=== PATIENT | male | born 1970 | race American Indian/Alaskan Native ===

== ENCOUNTER 2017-03-31 01:55 | Emergency (ER) | payer MEDICAID, OTHER ==
[2017-03-31 02:33] LABS: BASO # 0.1 K/uL (0.0-0.2); BASO % 1.4 % (0.0-2.0); EOS # 0.5 K/uL (0.0-0.7); EOS % 6.6 % (0.0-4.0); HEMATOCRIT 34.6 % (35.0-51.0); LYMPH # 2.2 K/uL (1.0-4.3); LYMPH % 29.6 % (20.0-40.0); MEAN CORPUSCULAR HEMOGLOBIN 25.1 pg (27.0-31.0); MEAN CORPUSCULAR HGB CONC 32.2 g/dL (33.0-37.0); MEAN PLATELET VOLUME 6.9 fL (7.2-11.7); MONO # 0.6 K/uL (0.0-0.8); MONO % 8.5 % (0.0-10.0); RED CELL DISTRIBUTION WIDTH 19.4 % (11.5-14.5); WHITE BLOOD COUNT 7.6 K/uL (4.8-10.8)
--- NOTE | 2017-03-31 02:39 | C.PDOC ---
History Of Present Illness 46 year old patient, with a past medical history of depression, presents to the ED complaining of feeling restless for the past few days. Patient also complains of racing thoughts, and difficulty sleeping. His physician recently prescribed him Abilify and he took it for the first time about 5 days ago. He believes the medication is causing his symptoms. He states if he does not get help, he may hurt himself. He denies specific plan. Patient also admits to drinking alcohol tonight. He tripped and fell at home sustaining a laceration to his left eyebrow. Patient denies loss of consciousness, nausea, vomiting, or shortness of breath. Time Seen by Provider: 03/31/17 02:10 Chief Complaint (Nursing): Psychiatric Evaluation History Per: Patient History/Exam Limitations: no limitations Onset/Duration Of Symptoms: Days (5) Current Symptoms Are (Timing): Still Present Suicide/Self Injury Attempted (Context): None Modifying Factor(s): Alcohol Severity: Mild Pain Scale Rating Of: 3 Associated Symptoms: Depression Recent travel outside of the [place]: No Past Medical History Reviewed: Historical Data, Nursing Documentation, Vital Signs Vital Signs: Last Vital Signs Temp 98.4 F 03/31/17 06:25 Pulse 88 03/31/17 06:25 Resp 16 03/31/17 06:25 BP 109/76 03/31/17 06:25 Pulse Ox 94 L 03/31/17 06:42 - Medical History PMH: Anemia, Anxiety, Back Problems, Bipolar Disorder, Depression, HTN, Schizophrenia, Seizures - [facility] Procedures GROUP PSYCHOTHERAPY (04/19/16) INJECT/INFUSE NEC (09/01/07) MEDICATION MANAGEMENT (04/19/16) NEBULIZER THERAPY (11/24/06) OTHER COUNSELING (04/19/16) Family History: States: Unknown Family Hx - Social History Hx Tobacco Use: No Hx Alcohol Use: No Hx Substance Use: Yes - Immunization History Hx Tetanus Toxoid Vaccination: No Hx Influenza Vaccination: No Hx Pneumococcal Vaccination: No Review Of Systems Except As Marked, All Systems Reviewed And Found Negative. Respiratory: Negative for: Shortness of Breath Gastrointestinal: Negative for: Nausea, Vomiting Skin: Positive for: Other (laceration to left eyebrow) Neurological: Negative for: Other (loss of consciousness) Physical Exam - Physical Exam Appears: Other (anxious. no acute distress. alcohol on breath) Skin: Warm, Dry Head: Normacephalic, Laceration (1.5 cm linear laceration above the left eyebrow. no active bleeding) Eye(s): bilateral: Normal Inspection Ear(s): Bilateral: Normal Nose: Normal Oral Mucosa: Moist Throat: Normal Neck: Normal ROM, Supple Chest: Symmetrical, No Tenderness Cardiovascular: Rhythm Regular Respiratory: Normal Breath Sounds, No Rales, No Rhonchi, No Wheezing Back: Normal Inspection, No CVA Tenderness Extremity: Bilateral: Atraumatic, Normal Color And Temperature, Normal ROM Neurological/Psych: Oriented x3, Normal Speech Gait: Steady ED Course And Treatment - Laboratory Results Result Diagrams: 03/31/17 02:31 03/31/17 02:31 Lab Interpretation: No Acute Changes O2 Sat by Pulse Oximetry: 94 (room air) Pulse Ox Interpretation: Normal - CT Scan/US head CT Other Rad Studies (CT/US): Read By Radiologist (Cordelia Fabian MD), Radiology Report Reviewed CT/US Interpretation: EXAM: CT Head Without Intravenous Contrast. CLINICAL HISTORY: 46 years old, male; Injury or trauma; Fall; Initial encounter; Concussion / head injury; Injury details: ETOH, fall; Additional info: Head injury s. P ETOH and fell. TECHNIQUE: Axial computed tomography images of the head/brain without intravenous contrast. This CT exam. was performed using one or more of the following dose reduction techniques: automated exposure. control , adjustment of the mA and/or kV according to patient size, and/or use of iterative. reconstruction technique. EXAM DATE/TIME: Exam ordered 03/31/2017 2: 20 AM. COMPARISON: No relevant prior studies available. FINDINGS: Brain: There is a previous report but no previous imaging from April 2016, at that time there was. description of cystic encephalomalacia in the left parietal region. There is no intracranial hemorrhage. No edema. There is asymmetry of the temporal lobes on the present study with the left being. smaller, there is asymmetry of the parietal lobes series 2 image 18 and 19 which may relate to the. previously described encephalomalacia which is not fully evaluated on this study. Ventricles: Unremarkable. No ventriculomegaly. Bones/joints: There is questioned fracture of the right lamina papyracea on the lowest image, if. there is suspicion for acute pathology of the orbits please obtain a maxillofacial CT. Soft tissues: Unremarkable. Sinuses: There is a small osteoma in the right frontal sinus. There is opacification of the bilateral. ethmoid sinuses, patchy, no air-fluid levels are seen. There is a small air- fluid level in the right. sphenoid sinus, together with moderate mucoperiosteal disease. In this retention cysts or polyps in. the bilateral maxillary sinuses. Mastoid air cells: Unremarkable as visualized. No mastoid effusion. Nasopharynx: Nasal septum deviated to the right. 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 IMPRESSION: No intracranial hemorrhage. Abnormality and asymmetry in the temporoparietal region as above. No fractures of the calvarium. Mastoid air cells clear. If there is suspicion for fracture of the. orbits/lamina papyracea, or for fracture related to the nasal structures, please obtain a dedicated. maxillofacial CT if warranted. Small air-fluid level in the right sphenoid sinus which might be post traumatic versus reflecting acute. sinusitis. Please compare to previous on site, the previous study which showed multiple abnormalities is not. available at this time. Laceration - Laceration Repair above left eyebrow Wound Length (In cm): 1.5 Description Of Wound: Linear Wound Cleansed With: Betadine, Sterile Saline Wound Examination: Irrigated With Saline, No FB With Wound Exploration Wound Closure: Skin Glue (dermabond) Wound Complexity: Simple Medical Decision Making Medical Decision Making: Impression: 46 y/o male with depression and s.p fall with laceration Plan: * Head CT * Labs Progress: wound cleansed and irrigated with NS, no deep structure involvement. Wound edges well approximated and closed with dermabond Labs reviewed and unremarkable. UDS positive for PCP and marijuana. Alcohol is 54. Patient is medically cleared. Contact radiation control worker for evaluation. Patient was seen by CW who states patient stable for discharge. Patient advised to follow up with his primary and [facility] for further evaluation and can stop taking medication and discuss with his doctor. Disposition Counseled Patient/Family Regarding: Studies Performed, Diagnosis, Need For Followup - Disposition Referrals: [employer] [facility] [Outside] Disposition: HOME/ ROUTINE Disposition Time: 06:41 Condition: STABLE Additional Instructions: Please follow [facility] with [facility] at [address] [place] [address]. Please call [phone] or ext [phone] to arrange appointment. If you need to speak to someone immediately call Crisis Hotline [phone] Instructions: Depression (DC) - POA Present On Arrival: None - Clinical Impression Clinical Impression: Depression, Drug reaction - PA / CREDIT CARD INTERVIEWER / Resident Statement MD/DO has reviewed & agrees with the documentation as recorded. - Scribe Statement The provider has reviewed the documentation as recorded by the Scribe Radha Taylor All medical record entries made by the Scribe were at my direction and personally dictated by me. I have reviewed the chart and agree that the record accurately reflects my personal performance of the history, physical exam, medical decision making, and the department course for this patient. I have also personally directed, reviewed, and agree with the discharge instructions and disposition.
[2017-03-31 02:41] LABS: CHLORIDE 99 mmol/L (98-107); POTASSIUM 4.3 mmol/L (3.6-5.2); SODIUM 138 mmol/L (132-148)
[2017-03-31 02:43] LABS: GFR AFRICAN-AMERICAN > 60
[2017-03-31 02:44] LABS: ALB/GLOB RATIO 1.4 (1.0-2.1); ALKALINE PHOSPHATASE 113 U/L (38-126); ALT/SGPT 160 U/L (21-72); AST/SGOT 276 U/L (17-59); BILIRUBIN,TOTAL 0.5 mg/dL (0.2-1.3); BLOOD UREA NITROGEN 10 mg/dL (9-20); CALCIUM 8.7 mg/dl (8.6-10.4); CARBON DIOXIDE 24 mmol/L (22-30); GLUCOSE,RANDOM 106 mg/dL (75-110); TOTAL PROTEIN 8.5 g/dL (6.3-8.3)
[2017-03-31 02:45] LABS: ALCOHOL SERUM 54 mg/dl (0-10)
--- NOTE | 2017-03-31 04:08 | CT ---
EXAM: CT Head Without Intravenous Contrast CLINICAL HISTORY: 46 years old, male; Injury or trauma; Fall; Initial encounter; Concussion / head injury; Injury details: ETOH, fall; Additional info: Head injury s. P ETOH and fell TECHNIQUE: Axial computed tomography images of the head/brain without intravenous contrast. This CT exam was performed using one or more of the following dose reduction techniques: automated exposure control, adjustment of the mA and/or kV according to patient size, and/or use of iterative reconstruction technique. EXAM DATE/TIME: Exam ordered 03/31/2017 2:20 AM COMPARISON: No relevant prior studies available. FINDINGS: Brain: There is a previous report but no previous imaging from April 2016, at that time there was description of cystic encephalomalacia in the left parietal region. There is no intracranial hemorrhage. No edema. There is asymmetry of the temporal lobes on the present study with the left being smaller, there is asymmetry of the parietal lobes series 2 image 18 and 19 which may relate to the previously described encephalomalacia which is not fully evaluated on this study. Ventricles: Unremarkable. No ventriculomegaly. Bones/joints: There is questioned fracture of the right lamina papyracea on the lowest image, if there is suspicion for acute pathology of the orbits please obtain a maxillofacial CT. Soft tissues: Unremarkable. Sinuses: There is a small osteoma in the right frontal sinus. There is opacification of the bilateral ethmoid sinuses, patchy, no air-fluid levels are seen. There is a small air-fluid level in the right sphenoid sinus, together with moderate mucoperiosteal disease. In this retention cysts or polyps in the bilateral maxillary sinuses. Mastoid air cells: Unremarkable as visualized. No mastoid effusion. 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 IMPRESSION: No intracranial hemorrhage. Abnormality and asymmetry in the temporoparietal region as above. No fractures of the calvarium. Mastoid air cells clear. If there is suspicion for fracture of the orbits/lamina papyracea, or for fracture related to the nasal structures, please obtain a dedicated maxillofacial CT if warranted. Small air-fluid level in the right sphenoid sinus which might be post traumatic versus reflecting acute sinusitis. Please compare to previous on site, the previous study which showed multiple abnormalities is not available at this time.
[2017-03-31 05:02] LABS: RBC URINE < 1 /hpf (0-3)
[2017-03-31 05:04] LABS: URINE BILIRUBIN NEGATIVE (NEGATIVE); URINE BLOOD NEGATIVE (NEGATIVE); URINE GLUCOSE (UA) NORMAL (Normal); URINE KETONE NEGATIVE (NEGATIVE); URINE LEUKOCYTE ESTERASE NEG Leu/uL (Negative); URINE PROTEIN NEGATIVE (NEGATIVE); URINE UROBILINOGEN NORMAL mg/dL (0.2-1.0); WBC URINE < 1 /hpf (0-5)
[2017-03-31 05:05] LABS: URINE COLOR YELLOW (YELLOW)
[2017-03-31 06:26] VITALS: BP 109/76; PULSE 88; RESP 16; TEMP 98.4
[2017-03-31 06:42] VITALS: O2SAT 94
== END 2017-03-31 06:56 | disposition home or self-care (01) ==
LOC: C.ER 01:55
DX: F32.89 Other specified depressive episodes (principal); R45.1 Restlessness and agitation; T43.595A Adverse effect of other antipsychotics and neuroleptics, initial encounter; S01.112A Laceration without foreign body of left eyelid and periocular area, initial encounter; W01.0XXA Fall on same level from slipping, tripping and stumbling without subsequent striking against object, initial encounter; Y92.009 Unspecified place in unspecified non-institutional (private) residence as the place of occurrence of the external cause

== ENCOUNTER 2018-02-11 05:05 | Inpatient (IN) | payer MEDICAID ==
[2018-02-11] MEDS ORDERED: Albuterol 0.083% Inhal Sol (2.5 mg/3 mL) UD ONE ×2 (05:13→06:52)
[2018-02-11] MEDS ORDERED: Albuterol 0.083% Inhal Sol (2.5 mg/3 mL) UD INH STA (05:19)
[2018-02-11] MEDS ORDERED: Magnesium Sulfate 1 gm in D5W 1 GM/100 ML BAG IV STA (05:22)
[2018-02-11] MEDS ORDERED: Albuterol-Ipratrop 3 mg / 0.5 (3 ml) UD ONE ×3 (05:31→09:36)
[2018-02-11] MEDS ORDERED: Magnesium Sulfate 1 gm in D5W 1 GM/100 ML BAG IVPB ONE (05:31)
[2018-02-11 05:48] LABS: BASO # 0.1 K/uL (0.0-0.2); BASO % 0.7 % (0.0-2.0); EOS # 0.6 K/uL (0.0-0.7); EOS % 5.6 % (0.0-4.0); HEMOGLOBIN 8.6 g/dL (12.0-18.0); LYMPH # 1.5 K/uL (1.0-4.3); LYMPH % 14.5 % (20.0-40.0); MEAN CORPUSCULAR HEMOGLOBIN 23.1 pg (27.0-31.0); MEAN CORPUSCULAR HGB CONC 31.9 g/dL (33.0-37.0); MEAN PLATELET VOLUME 6.9 fL (7.2-11.7); MONO # 0.8 K/uL (0.0-0.8); MONO % 7.8 % (0.0-10.0); NEUT # 7.5 K/uL (1.8-7.0); NEUT % 71.4 % (50.0-75.0); NRBC % 0.1 % (0.0-2.0); RBC 3.71 Mil/uL (4.40-5.90); RED CELL DISTRIBUTION WIDTH 18.6 % (11.5-14.5); WHITE BLOOD COUNT 10.5 K/uL (4.8-10.8)
[2018-02-11 05:49] LABS: MEAN CELL VOLUME 72.4 fL (80.0-94.0)
[2018-02-11 06:01] LABS: ALB/GLOB RATIO 0.9 (1.0-2.1); ALBUMIN 3.7 g/dL (3.5-5.0); ALT/SGPT 87 U/L (21-72); AST/SGOT 107 U/L (17-59); BLOOD UREA NITROGEN 19 mg/dL (9-20); CALCIUM 8.7 mg/dl (8.6-10.4); GFR AFRICAN-AMERICAN > 60; GFR NON-AFRICAN AMERICAN > 60
[2018-02-11] MEDS: Albuterol-Ipratrop 3 mg / 0.5 (3 ml) UD IH SCH (06:11)
[2018-02-11] MEDS ORDERED: Naloxone 0.4 mg/ml Inj (Adult) IV STA (06:12)
[2018-02-11] MEDS ORDERED: Naloxone 0.4 mg/ml Inj (Adult) ONE (06:17)
--- NOTE | 2018-02-11 06:20 | C.PDOC ---
History Of Present Illness 47 y/o male brought by ambulance to ED with complaints of wheezing that began 3 days ago. Patient denies any other complaints. Administered bunib Time Seen by Provider: 02/11/18 05:19 Chief Complaint (Nursing): Respiratory Distress History Per: Patient History/Exam Limitations: no limitations Onset/Duration Of Symptoms: Hrs Current Symptoms Are (Timing): Still Present Recent travel outside of the [place]: No Past Medical History Reviewed: Historical Data, Nursing Documentation, Vital Signs Vital Signs: Last Vital Signs Temp 98.9 F 02/11/18 05:12 Pulse 96 H 02/11/18 06:29 Resp 17 02/11/18 06:29 BP 142/99 H 02/11/18 06:29 Pulse Ox 100 02/11/18 06:29 - Medical History PMH: Anemia, Anxiety, Back Problems, Bipolar Disorder, Depression, Schizophrenia - [facility] Procedures GROUP PSYCHOTHERAPY (04/19/16) INJECT/INFUSE NEC (09/01/07) MEDICATION MANAGEMENT (04/19/16) NEBULIZER THERAPY (11/24/06) OTHER COUNSELING (04/19/16) Family History: States: Unknown Family Hx - Social History Hx Tobacco Use: No Hx Alcohol Use: No Hx Substance Use: Yes - Immunization History Hx Tetanus Toxoid Vaccination: No Hx Influenza Vaccination: No Hx Pneumococcal Vaccination: No Review Of Systems Constitutional: Negative for: Fever, Chills Cardiovascular: Negative for: Chest Pain Respiratory: Positive for: Wheezing Gastrointestinal: Negative for: Nausea, Vomiting, Diarrhea Skin: Negative for: Rash Neurological: Negative for: Weakness, Numbness Physical Exam - Physical Exam Appears: No Acute Distress, Other (looks intoxicated) Skin: Warm, Dry Head: Atraumatic, Normacephalic Eye(s): bilateral: Normal Inspection Ear(s): Bilateral: Normal Nose: No Flaring Oral Mucosa: Moist Throat: No Erythema, No Exudate Neck: Normal ROM, Supple Chest: Symmetrical, No Tenderness Cardiovascular: Rhythm Regular Respiratory: No Decreased Breath Sounds, No Accessory Muscle Use, No Rales, No Rhonchi, Wheezing (severe, b/l) Gastrointestinal/Abdominal: Soft, No Tenderness, No Distention Extremity: Normal ROM, No Tenderness, No Deformity Extremity: Bilateral: Normal Color And Temperature, Normal ROM Neurological/Psych: Oriented x3, No Normal Speech (slurred), Other (no focal deficits ) Gait: Steady ED Course And Treatment - Laboratory Results Result Diagrams: 02/11/18 05:44 02/11/18 05:44 O2 Sat by Pulse Oximetry: 100 (RA) Pulse Ox Interpretation: Normal Progress Note: Ordered EKG, blood work, and CXR. Administered Albuterol neublizer, peak flow, Duoneb. Respiratory rate dropped to 4/min. Patient admits on using drugs. Narcan aand IV fluids given. On re-evaluation patient feels better, but still has wheezing. 2 more Albuterol neb ordered. At 7 am case was signed out to MOR Cervantes Disposition - Disposition Disposition Time: 07:00 Condition: FAIR Forms: [employer] (Burmese) - Clinical Impression Clinical Impression: Exacerbation of asthma, Substance abuse - PA / INSTRUMENT REPAIR TECHNICIAN / Resident Statement MD/DO has reviewed & agrees with the documentation as recorded. - Scribe Statement The provider has reviewed the documentation as recorded by the Scribe Geno Schaeffer All medical record entries made by the Scribe were at my direction and personally dictated by me. I have reviewed the chart and agree that the record accurately reflects my personal performance of the history, physical exam, medical decision making, and the department course for this patient. I have also personally directed, reviewed, and agree with the discharge instructions and disposition. Physician Patient Turnover Patient Signed Over To: Lucía Mckeon Handoff Comments: 2 more albuterol neb, re-evaluate for dispo
[2018-02-11 06:24] LABS: BARBITURATES, UR NEGATIVE (NEGATIVE); BENZODIAZEPINES, UR NEGATIVE (NEGATIVE)
[2018-02-11] MEDS ORDERED: Albuterol 0.083% Inhal Sol (2.5 mg/3 mL) UD IH STA (06:46)
[2018-02-11] MEDS ORDERED: Albuterol-Ipratrop 3 mg / 0.5 (3 ml) UD IH STA (06:46)
[2018-02-11 06:52] LABS: OPIATES, UR POSITIVE (NEGATIVE); PHENCYCLIDINE, UR POSITIVE (NEGATIVE)
--- NOTE | 2018-02-11 08:30 | RAD ---
HISTORY: cough/wheezing COMPARISON: No prior. FINDINGS: LUNGS: Limited patchy infiltrate is suggested the right apex with remaining lung cali clear. PLEURA: No significant pleural effusion identified, no pneumothorax apparent. CARDIOVASCULAR: Normal. OSSEOUS STRUCTURES: No significant abnormalities. VISUALIZED UPPER ABDOMEN: Normal. OTHER FINDINGS: None. IMPRESSION: Limited patchy infiltrate right apex as discussed above. Remaining lung cali appear clear. Clinically correlate further. PA review submitted.
[2018-02-11] MEDS ORDERED: Albuterol-Ipratrop 3 mg / 0.5 (3 ml) UD INH STA (09:23)
[2018-02-11] MEDS: Albuterol-Ipratrop 3 mg / 0.5 (3 ml) UD INH SCH ×2 (14:52→19:52)
[2018-02-11 16:33] VITALS: RESP 20
[2018-02-11] MEDS: Pantoprazole 40 mg EC Tab PO SCH (17:54)
[2018-02-11] MEDS: Azithromycin 500 MG in Sodium Chloride 0.9% 250 ML IVPB SCH (18:21)
[2018-02-11] MEDS ORDERED: Calcium Carbonate 500 mg Chewable Antacid Tab PO ONE (19:34)
[2018-02-11] MEDS: MethylPREDNISolone 40 mg Vial IVP SCH (21:58)
[2018-02-12] MEDS: Albuterol-Ipratrop 3 mg / 0.5 (3 ml) UD INH SCH ×4 (01:48→20:49)
[2018-02-12] MEDS: MethylPREDNISolone 40 mg Vial IVP SCH ×3 (05:40→21:00)
[2018-02-12 07:55] LABS: BASO % 0.3 % (0.0-2.0); HEMOGLOBIN 8.9 g/dL (12.0-18.0); LYMPH # 0.9 K/uL (1.0-4.3); LYMPH % 6.6 % (20.0-40.0); MEAN CELL VOLUME 72.2 fL (80.0-94.0); MEAN CORPUSCULAR HEMOGLOBIN 23.2 pg (27.0-31.0); MEAN CORPUSCULAR HGB CONC 32.2 g/dL (33.0-37.0); MONO # 0.3 K/uL (0.0-0.8); MONO % 2.2 % (0.0-10.0); NEUT # 12.6 K/uL (1.8-7.0); NEUT % 90.9 % (50.0-75.0); PLATELET COUNT 301 K/uL (130-400); RBC 3.82 Mil/uL (4.40-5.90); RED CELL DISTRIBUTION WIDTH 18.6 % (11.5-14.5); WHITE BLOOD COUNT 13.9 K/uL (4.8-10.8)
[2018-02-12 08:13] LABS: ALB/GLOB RATIO 0.9 (1.0-2.1); ALBUMIN 3.4 g/dL (3.5-5.0); ALT/SGPT 63 U/L (21-72); AST/SGOT 62 U/L (17-59); BILIRUBIN,DIRECT 0.4 mg/dL (0.0-0.4); BLOOD UREA NITROGEN 15 mg/dL (9-20); CALCIUM 8.3 mg/dl (8.6-10.4); GFR AFRICAN-AMERICAN > 60; GFR NON-AFRICAN AMERICAN > 60
[2018-02-12] MEDS: Enoxaparin 40 mg Syringe SC SCH (09:15)
[2018-02-12] MEDS: Pantoprazole 40 mg EC Tab PO SCH (09:18)
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
[2018-02-12 11:40] LABS: BANDS 2 % (0-2); LYMPHOCYTE 6 % (20-40); MONOCYTE 3 % (0-10); NEUTROPHIL 89 % (50-75); PLATELET ESTIMATE NORMAL (NORMAL); TOTAL CELLS COUNTED 100
[2018-02-12 11:41] LABS: HYPOCHROMIC SLIGHT; POLYCHROMIC SLIGHT
[2018-02-12 11:42] LABS: MICROCYTOSIS SLIGHT; POIKILOCYTOSIS SLIGHT; SCHISTOCYTES SLIGHT
[2018-02-12 11:43] LABS: LARGE PLATELETS PRESENT
[2018-02-12 11:45] LABS: ANISOCYTOSIS MODERATE; TOXIC GRANULATION PRESENT
[2018-02-12] MEDS: Azithromycin 500 MG in Sodium Chloride 0.9% 250 ML IVPB SCH (17:42)
[2018-02-12] MEDS ORDERED: Aluminum Hydroxide/Magnesium Hydroxide Susp (30 mL) PO ONE (20:30)
[2018-02-12] MEDS: QUEtiapine 200 mg XR Tab PO SCH (21:00)
[2018-02-13] MEDS: Albuterol-Ipratrop 3 mg / 0.5 (3 ml) UD INH SCH ×4 (01:37→19:23)
[2018-02-13] MEDS: MethylPREDNISolone 40 mg Vial IVP SCH ×3 (06:04→21:59)
--- NOTE | 2018-02-13 08:49 | HP ---
HISTORY OF PRESENT ILLNESS: A 47-year-old male admitted to the hospital with chief complaint of shortness of breath, wheezes, cough, fatigue, tiredness. The patient came to the hospital and advised admission. The patient has a history of asthma. The patient is smoker. The patient is awake, alert to time and place. PHYSICAL EXAMINATION: VITAL SIGNS: Temperature 98, pulse 90, blood pressure 130/70. HEENT: Within normal limits. NECK: Supple. CHEST: Symmetrical. Decreased air entry. Bilateral wheezes. HEART: Regular. ABDOMEN: Soft. EXTREMITIES: No edema. IMPRESSION AND PLAN: The patient has bronchial asthma, bronchitis and chronic obstructive pulmonary disease. The patient on bed rest, supportive care, bronchodilators. Home Mckeon MD
--- NOTE | 2018-02-13 08:52 | PN ---
DATE: The patient is wheezing, coughing, ____wheezing. At this point, continue current treatment. Home Mckeon MD
[2018-02-13] MEDS: Enoxaparin 40 mg Syringe SC SCH (09:38)
[2018-02-13] MEDS: Pantoprazole 40 mg EC Tab PO SCH (09:39)
--- NOTE | 2018-02-13 10:36 | CP.PCM.PN ---
Subjective - Date & Time of Evaluation Date of Evaluation: 02/13/18 Time of Evaluation: 09:15 - Subjective Subjective: PGY 2 Medicine Progress Note Patient seen and examined in no apparent acute distress. Patient admits to being acutely short of breath earlier prior to admission. Patient did not seem to recall most of his personal history when questioned. Patient also did not want to answer some of the questions. Some of the history was supplemented by the prior hospital records. PMHx-HTN, Asthma, Gout, Lumbar disc herniation. Past Psychiatric Hx-Bipolar disorder, Schizophrenia PSHx- None Fam hx- Unknown Social Hx- Alcohol Use and Marijuana. Formerly used cocaine Meds- Seroquel XR 400 mg po daily, Gabapentin 300 mg po daily, Ultram 50 mg Po Q6 PRN, Percocet 10-325mg Q12 PRN, Spiriva 2 puffs daily, Duexis TID, TEnofovir 300mg daily, Abilify 20 mg daily, Creon . Patient uses [facility] located near [facility] Allergies- PCN Objective - Vital Signs/Intake and Output Vital Signs (last 24 hours): Temp Pulse Resp BP Pulse Ox 97.7 F 80 20 121/81 96 02/13/18 08:25 02/13/18 08:25 02/13/18 08:25 02/13/18 08:25 02/13/18 08:25 Intake and Output: 02/13/18 02/13/18 06:59 18:59 Intake Total 250 Balance 250 - Medications Medications: Current Medications Acetaminophen (Tylenol 325mg Tab) 650 mg PO Q8 PRN PRN Reason: Headache Last Admin: 02/12/18 13:23 Dose: 650 mg Albuterol/Ipratropium (Duoneb 3 Mg/0.5 Mg (3 Ml) Ud) 3 ml INH RQ6 [facility] Last Admin: 02/13/18 07:34 Dose: 3 ml Enoxaparin Sodium (Lovenox) 40 mg SC DAILY [facility] Last Admin: 02/13/18 09:38 Dose: 40 mg Escitalopram Oxalate (Lexapro) 5 mg PO DAILY [facility] Last Admin: 02/13/18 09:39 Dose: 5 mg Azithromycin 500 mg/ Sodium (Chloride) 250 mls @ 250 mls/hr IVPB Q24H [facility] PRN Reason: Protocol Last Admin: 02/12/18 17:42 Dose: 250 mls/hr Methadone HCl (Methadone) 5 mg PO DAILY [facility] Stop: 02/14/18 10:01 Last Admin: 02/13/18 09:39 Dose: 5 mg Methylprednisolone (Solu-Medrol) 40 mg IVP Q8 [facility] Last Admin: 02/13/18 06:04 Dose: 40 mg Pantoprazole Sodium (Protonix Ec Tab) 40 mg PO DAILY [facility] Last Admin: 02/13/18 09:39 Dose: 40 mg Pneumococcal Polyvalent Vaccine (Pneumovax 23 Vaccine) 0.5 ml IM .ONCE ONE Stop: 02/14/18 10:01 Quetiapine Fumarate (Seroquel Xr) 400 mg PO [facility] Last Admin: 02/12/18 21:00 Dose: 400 mg Zolpidem Tartrate (Ambien) 5 mg PO [facility] Last Admin: 02/12/18 21:11 Dose: 5 mg - Labs Labs: 02/12/18 07:42 02/12/18 07:42 - Constitutional Appears: Non-toxic, No Acute Distress - Head Exam Head Exam: ATRAUMATIC, NORMAL INSPECTION - Eye Exam Eye Exam: EOMI, Normal appearance Pupil Exam: NORMAL ACCOMODATION - ENT Exam ENT Exam: Mucous Membranes Moist - Respiratory Exam Respiratory Exam: Wheezes - Cardiovascular Exam Cardiovascular Exam: +S1, +S2 - GI/Abdominal Exam GI & Abdominal Exam: Soft, Hyperactive Bowel Sounds - Extremities Exam Extremities Exam: Full ROM - Back Exam Back Exam: Full ROM - Neurological Exam Neurological Exam: Alert, Awake, Oriented x3 - Psychiatric Exam Psychiatric exam: Flat Affect - Skin Skin Exam: Dry, Warm Additional comments: wound on left later saini- dressed, clean, dry, intact Assessment and Plan (1) Exacerbation of asthma Assessment & Plan: Patient on Albuterol Q6 On Azithromycin and Prednisone therapy. Will transition to PO therapy once ready for discharge. CXR noted questionable RUL infiltrates Cont to monitor Status: Acute (2) History of recent fall Assessment & Plan: Per nursing, patient has a history of recurrent falls PT eval in place- F/U recommendations Will begin discharge planning pending recommendations Status: Acute (3) Polysubstance abuse Assessment & Plan: UDS positive for PCP, Opiates and Cannabinoids Counseling cessation Psych on board- Follow up recommendations Medication management per psych Status: Chronic (4) Prophylactic measure Assessment & Plan: GI Prophylaxis on board Lovenox SCDs Discussed with attending. All planning and management per Dr. Mckeon Status: Acute
--- NOTE | 2018-02-13 13:41 | PCM.PYCHPN ---
Psychiatric Progress Note - Psychiatric Progress Note Patient seen today, length of contact: 16 min Patient Chief Complaint: "I am tired" Problems Identified/Issues Discussed: The pt is seen, chart reviewed, case discussed with staff. Support given, CBT and NE used briefly No new symptoms reported, improving slowly and needs more time No SEs from medications, risks discussed. After care discussed Medication Change: Yes (detox changes daily) Medical Record Reviewed: Yes Mental Status Examination - Cognitive Function Orientation: Person, Place, Situation, Time Memory: Intact Attention: WNL Concentration: Poor Association: WNL Fund of Knowledge: WNL - Mood Mood: Depressed, Anxious - Affect Affect: Constricted - Speech Speech: Appropriate - Formal Thought Process Formal Thought Process: No Impairment - Suicidal Ideation Suicidal Ideation: No - Homicidal Ideation Homicidal Ideation: No Goal/Treatment Plan - Goal/Treatment Plan Need for Continued Stay: Discharge may exacerbated symptoms, Severe functional impairment Progress Toward Problem(s) and Goals/Treatment Plan: Methadone detox As needed medications Gabapentin for augmentation if needed resume Seroquel XR 400 Add low dose lexapro for depression, anxiety - risk of switch discussed Add low dose ambien All risks, benefits and alternatives of medications, including no medications, discussed and the patient understood and agreed. Supportive therapy and psychoeducation NE for abstinence Encourage MAT Refer to rehab or IOP Attend self-help groups as well NE for smoking cessation and patch if needed
[2018-02-13] MEDS: QUEtiapine 200 mg XR Tab PO SCH (21:59)
[2018-02-14] MEDS: Albuterol-Ipratrop 3 mg / 0.5 (3 ml) UD INH SCH ×3 (01:56→13:29)
[2018-02-14] MEDS: MethylPREDNISolone 40 mg Vial IVP SCH ×2 (05:41→13:23)
[2018-02-14 06:37] LABS: BASO % 0.1 % (0.0-2.0); HEMOGLOBIN 8.9 g/dL (12.0-18.0); LYMPH # 1.5 K/uL (1.0-4.3); LYMPH % 9.8 % (20.0-40.0); MEAN CELL VOLUME 72.3 fL (80.0-94.0); MEAN CORPUSCULAR HEMOGLOBIN 22.9 pg (27.0-31.0); MEAN CORPUSCULAR HGB CONC 31.7 g/dL (33.0-37.0); MEAN PLATELET VOLUME 7.1 fL (7.2-11.7); MONO # 0.6 K/uL (0.0-0.8); MONO % 3.7 % (0.0-10.0); NEUT # 12.9 K/uL (1.8-7.0); NEUT % 86.4 % (50.0-75.0); PLATELET COUNT 315 K/uL (130-400); RBC 3.87 Mil/uL (4.40-5.90); RED CELL DISTRIBUTION WIDTH 18.3 % (11.5-14.5)
[2018-02-14 06:50] LABS: BLOOD UREA NITROGEN 17 mg/dL (9-20); CALCIUM 8.4 mg/dl (8.6-10.4); GFR AFRICAN-AMERICAN > 60; GFR NON-AFRICAN AMERICAN > 60
[2018-02-14 08:30] LABS: ANISOCYTOSIS MODERATE; BANDS 1 % (0-2); HYPOCHROMIC MODERATE; LYMPHOCYTE 9 % (20-40); MONOCYTE 2 % (0-10); NEUTROPHIL 88 % (50-75); PLATELET ESTIMATE NORMAL (NORMAL); TOTAL CELLS COUNTED 100
[2018-02-14 08:31] LABS: OVALOCYTES SLIGHT; TARGET CELLS SLIGHT
[2018-02-14 08:32] VITALS: BP 128/76; PULSE 80; O2SAT 98
[2018-02-14] MEDS: Enoxaparin 40 mg Syringe SC SCH (09:06)
[2018-02-14] MEDS: Pantoprazole 40 mg EC Tab PO SCH (09:07)
--- NOTE | 2018-02-14 09:14 | CP.PCM.PN ---
Subjective - Date & Time of Evaluation Date of Evaluation: 02/14/18 Time of Evaluation: 11:45 - Subjective Subjective: PGY 2 Med Progress Note- Dr. Mckeon's service Pt seen and examined in no apparent acute distress. Per Physical therapy team, it was recommended that patient would benefit from ELIDIA, but patient would rather go home at this time. Patient states that he feels better today. He denies shortness of breath. Objective - Vital Signs/Intake and Output Vital Signs (last 24 hours): Temp Pulse Resp BP Pulse Ox 97.5 F L 80 20 128/76 98 02/14/18 08:32 02/14/18 08:32 02/14/18 08:32 02/14/18 08:32 02/14/18 08:32 Intake and Output: 02/14/18 02/14/18 06:59 18:59 Intake Total 480 Balance 480 - Medications Medications: Current Medications Acetaminophen (Tylenol 325mg Tab) 650 mg PO Q8 PRN PRN Reason: Headache Last Admin: 02/14/18 08:54 Dose: 650 mg Albuterol/Ipratropium (Duoneb 3 Mg/0.5 Mg (3 Ml) Ud) 3 ml INH RQ6 [facility] Last Admin: 02/14/18 07:26 Dose: 3 ml Azithromycin (Zithromax) 500 mg PO Q24H [facility] Last Admin: 02/13/18 19:57 Dose: 500 mg Enoxaparin Sodium (Lovenox) 40 mg SC DAILY [facility] Last Admin: 02/14/18 09:06 Dose: 40 mg Escitalopram Oxalate (Lexapro) 5 mg PO DAILY [facility] Last Admin: 02/14/18 09:13 Dose: 5 mg Methadone HCl (Methadone) 5 mg PO DAILY [facility] Stop: 02/14/18 10:01 Last Admin: 02/14/18 09:07 Dose: 5 mg Methylprednisolone (Solu-Medrol) 40 mg IVP Q8 [facility] Last Admin: 02/14/18 05:41 Dose: 40 mg Pantoprazole Sodium (Protonix Ec Tab) 40 mg PO DAILY [facility] Last Admin: 02/14/18 09:07 Dose: 40 mg Pneumococcal Polyvalent Vaccine (Pneumovax 23 Vaccine) 0.5 ml IM .ONCE ONE Stop: 02/14/18 10:01 Last Admin: 02/14/18 09:03 Dose: 0.5 ml Quetiapine Fumarate (Seroquel Xr) 400 mg PO [facility] Last Admin: 02/13/18 21:59 Dose: 400 mg Zolpidem Tartrate (Ambien) 5 mg PO [facility] Last Admin: 02/13/18 21:59 Dose: 5 mg - Labs Labs: 02/14/18 06:27 02/14/18 06:27 - Constitutional Appears: Non-toxic, No Acute Distress - Head Exam Head Exam: ATRAUMATIC, NORMAL INSPECTION - Eye Exam Eye Exam: EOMI, PERRL Pupil Exam: NORMAL ACCOMODATION, PERRL - ENT Exam ENT Exam: Mucous Membranes Moist - Neck Exam Neck Exam: Full ROM - Respiratory Exam Respiratory Exam: NORMAL BREATHING PATTERN. absent: Wheezes - Cardiovascular Exam Cardiovascular Exam: +S1, +S2 - GI/Abdominal Exam GI & Abdominal Exam: Soft, Normal Bowel Sounds - Extremities Exam Extremities Exam: Full ROM, Normal Capillary Refill - Back Exam Back Exam: Full ROM - Neurological Exam Neurological Exam: Alert, Awake, Oriented x3 - Psychiatric Exam Psychiatric exam: Normal Affect, Normal Mood - Skin Skin Exam: Normal Color, Warm Assessment and Plan (1) Exacerbation of asthma Status: Acute (2) History of recent fall Status: Acute (3) Polysubstance abuse Status: Chronic (4) Prophylactic measure Status: Acute - Assessment and Plan (Free Text) Assessment: Exacerbation of asthma Assessment & Plan: Patient on Albuterol Q6 On Azithromycin and Prednisone therapy. Will transition to PO therapy once ready for discharge. CXR noted questionable RUL infiltrates Cont to monitor Status: Acute History of recent fall Assessment & Plan: Per nursing, patient has a history of recurrent falls PT eval in place- Recommendations for use of a cane. Patient would benefit from ELIDIA, however he would rather go home at this time. Will make recommendations for outpatient physical therapy services in light of patient's recurrent falls. Patient encouraged to follow up with primary medical doctor as well for management of chronic asthma. Status: Acute Polysubstance abuse Assessment & Plan: UDS positive for PCP, Opiates and Cannabinoids Counseling cessation Psych on board- Follow up recommendations Medication management per psych Status: Chronic Prophylactic measure Assessment & Plan: GI Prophylaxis on board Lovenox SCDs DC Instructions Patient is medically stable for discharge home. Patient to follow up with primary Dr. Mckeon within one week. Patient will be given a prescription for azithromycin and a medrol dose pack. Patient will be given a prescription for a cane and for outpatient physical therapy services If symptoms return, go to the emergency room. Instructions explained to patient who is aware. Discussed with attending. All planning and management per Dr. Mckeon
[2018-02-14] MEDS ORDERED: Pneumococcal 23-Valent Vaccine IM ONE (10:00)
[2018-02-14 16:18] VITALS: TEMP 98.5
--- NOTE | 2018-02-14 22:15 | CARD ---
APPROVED REPORT EKG Measurement Heart [id number] <Conclusion> Sinus tachycardia Otherwise normal ECG
== END 2018-02-14 16:49 | disposition home or self-care (01) | DRG 96 ==
LOC: C.ER 05:05 → C.9E 09:22 → C.3T 12:13 → OBSVTOIN 02-13 10:58
PROVIDERS: ADMIT Internal Medicine Pulmonary Disease; ATTEND Internal Medicine Pulmonary Disease
PROC: HZ2ZZZZ Detoxification Services for Substance Abuse Treatment (ICD-10-PCS; principal; 2018-02-13)
PROC: GZHZZZZ Group Psychotherapy (ICD-10-PCS; 2018-02-13)
PROC: GZ58ZZZ Individual Psychotherapy, Cognitive-Behavioral (ICD-10-PCS; 2018-02-13)
PROC: GZ56ZZZ Individual Psychotherapy, Supportive (ICD-10-PCS; 2018-02-13)
DX: J45.901 Unspecified asthma with (acute) exacerbation (principal); F11.23 Opioid dependence with withdrawal; J44.9 Chronic obstructive pulmonary disease, unspecified; F20.9 Schizophrenia, unspecified; B19.10 Unspecified viral hepatitis B without hepatic coma; F12.90 Cannabis use, unspecified, uncomplicated; F17.210 Nicotine dependence, cigarettes, uncomplicated; F31.4 Bipolar disorder, current episode depressed, severe, without psychotic features; F60.9 Personality disorder, unspecified; M10.9 Gout, unspecified; M51.26 Other intervertebral disc displacement, lumbar region; I10 Essential (primary) hypertension; Z81.8 Family history of other mental and behavioral disorders; Z91.5 Personal history of self-harm; R73.03 Prediabetes

== ENCOUNTER 2018-06-10 03:24 | Emergency (ER) | payer MEDICAID ==
--- NOTE | 2018-06-10 03:52 | C.PDOC ---
History Of Present Illness 47 year old male presents to the ED for intoxication. Patient admits to using heroin today and states he needs a place to stay. Patient denies SI/HI, hallucinations, CP, SOB. Time Seen by Provider: 06/10/18 03:52 Chief Complaint (Nursing): Substance Abuse History Per: Patient History/Exam Limitations: intoxication Onset/Duration Of Symptoms: Hrs Current Symptoms Are (Timing): Still Present Suicide/Self Injury Attempted (Context): None Modifying Factor(s): Other (heroin) Associated Symptoms: denies: Depression, Suicidal Thoughts, Suicidal Plan Recent travel outside of the [place]: No Additional History Per: Patient Past Medical History Reviewed: Historical Data, Nursing Documentation, Vital Signs Vital Signs: Last Vital Signs Temp 98.1 F 06/10/18 03:33 Pulse 100 H 06/10/18 03:33 Resp 18 06/10/18 03:33 BP 110/76 06/10/18 03:33 Pulse Ox 100 06/10/18 03:53 - Medical History PMH: Anemia, Anxiety, Arthritis (BACK), Asthma, Back Problems, Bipolar Disorder , Depression, Schizophrenia Denies: Diabetes, Hepatitis, HIV, HTN, Chronic Kidney Disease, Seizures, Sexually Transmitted Disease Surgical History: No Surg Hx - [facility] Procedures DETOXIFICATION SERVICES FOR SUBSTANCE ABUSE TREATMENT (02/13/18) GROUP PSYCHOTHERAPY (02/13/18) INDIVIDUAL PSYCHOTHERAPY, COGNITIVE-BEHAVIORAL (02/13/18) INDIVIDUAL PSYCHOTHERAPY, SUPPORTIVE (02/13/18) INJECT/INFUSE NEC (09/01/07) MEDICATION MANAGEMENT (04/19/16) NEBULIZER THERAPY (11/24/06) OTHER COUNSELING (04/19/16) Family History: States: Unknown Family Hx - Social History Hx Tobacco Use: No Hx Alcohol Use: Yes (Rarely) Hx Substance Use: Yes - Immunization History Hx Tetanus Toxoid Vaccination: No Hx Influenza Vaccination: No Hx Pneumococcal Vaccination: No Review Of Systems Constitutional: Negative for: Fever, Chills Cardiovascular: Negative for: Chest Pain, Palpitations Respiratory: Negative for: Cough, Shortness of Breath Gastrointestinal: Negative for: Nausea, Vomiting, Abdominal Pain Neurological: Negative for: Weakness, Numbness Psych: Negative for: Depression, Suicidal ideation Physical Exam - Physical Exam Appears: Non-toxic, No Acute Distress Skin: Warm, Dry Head: Normacephalic Eye(s): bilateral: Normal Inspection Neck: Supple Chest: Symmetrical Cardiovascular: Rhythm Regular Respiratory: Normal Breath Sounds, No Rales, No Rhonchi, No Wheezing Gastrointestinal/Abdominal: Soft, No Tenderness, No Guarding, No Rebound Extremity: No Tenderness, No Swelling Extremity: Bilateral: Atraumatic, Normal Color And Temperature, Normal ROM Neurological/Psych: Oriented x3, Normal Speech Gait: Steady ED Course And Treatment O2 Sat by Pulse Oximetry: 100 (ON RA) Pulse Ox Interpretation: Normal Disposition Counseled Patient/Family Regarding: Studies Performed, Diagnosis, Need For Followup - Disposition Referrals: [facility] [Outside] Disposition: HOME/ ROUTINE Disposition Time: 03:52 Condition: FAIR Instructions: Drug Abuse and Drug Addiction (DC) Forms: [employer] (Romanian) - Clinical Impression Clinical Impression: Substance abuse - Scribe Statement The provider has reviewed the documentation as recorded by the Scribe Anant Payne All medical record entries made by the Scribe were at my direction and personally dictated by me. I have reviewed the chart and agree that the record accurately reflects my personal performance of the history, physical exam, medical decision making, and the department course for this patient. I have also personally directed, reviewed, and agree with the discharge instructions and disposition.
[2018-06-10 05:32] VITALS: BP 110/70; PULSE 78; RESP 20; TEMP 98; O2SAT 98
== END 2018-06-10 05:26 | disposition home or self-care (01) ==
LOC: C.ER 03:24
DX: F11.129 Opioid abuse with intoxication, unspecified (principal)

== ENCOUNTER 2018-12-11 01:56 | Emergency (ER) | payer MEDICAID, OTHER ==
[2018-12-11 02:09] VITALS: RESP 16; O2SAT 100
[2018-12-11] MEDS ORDERED: Naproxen 550 mg Tab PO STA (02:21)
--- NOTE | 2018-12-11 05:02 | C.PDOC ---
History Of Present Illness 48 year old male presents complaining of chronic right knee pain. Contrary to triage patient denies fall. He is requesting pain medication and a place to spend the night. Denies weakness or numbness. Time Seen by Provider: 12/11/18 02:14 Chief Complaint (Nursing): Lower Extremity Problem/Injury History Per: Patient History/Exam Limitations: no limitations Onset/Duration Of Symptoms: Days Current Symptoms Are (Timing): Still Present Recent travel outside of the [place]: No Past Medical History Reviewed: Historical Data, Nursing Documentation, Vital Signs Vital Signs: Last Vital Signs Temp 97.6 F 12/11/18 02:03 Pulse 70 12/11/18 02:03 Resp 16 12/11/18 02:03 BP 114/77 12/11/18 02:03 Pulse Ox 100 12/11/18 02:03 - Medical History PMH: Anemia, Anxiety, Arthritis (BACK), Asthma, Back Problems, Bipolar Disorder, Depression, Schizophrenia, Seizures Denies: Diabetes, Hepatitis, HIV, HTN, Chronic Kidney Disease, Sexually Transmitted Disease - [facility] Procedures DETOXIFICATION SERVICES FOR SUBSTANCE ABUSE TREATMENT (02/13/18) GROUP PSYCHOTHERAPY (02/13/18) INDIVIDUAL PSYCHOTHERAPY, COGNITIVE-BEHAVIORAL (02/13/18) INDIVIDUAL PSYCHOTHERAPY, SUPPORTIVE (02/13/18) INJECT/INFUSE NEC (09/01/07) MEDICATION MANAGEMENT (04/19/16) NEBULIZER THERAPY (11/24/06) OTHER COUNSELING (04/19/16) Family History: States: Unknown Family Hx - Social History Hx Tobacco Use: No Hx Alcohol Use: Yes (Rarely) Hx Substance Use: Yes - Immunization History Hx Tetanus Toxoid Vaccination: No Hx Influenza Vaccination: No Hx Pneumococcal Vaccination: No Review Of Systems Musculoskeletal: Positive for: Other (Chronic right knee pain) Neurological: Negative for: Weakness, Numbness Physical Exam - Physical Exam Appears: Non-toxic, No Acute Distress Skin: Normal Color, Warm, Dry Head: Atraumatic, Normacephalic Eye(s): bilateral: Normal Inspection Extremity: Normal ROM (x4), No Tenderness, No Calf Tenderness, Capillary Refill (<2 seconds), No Deformity, No Swelling, No Other (warmth) Pulses: Left Radial: Normal, Right Radial: Normal Neurological/Psych: Oriented x3, Normal Speech, Normal Motor, Normal Sensation Gait: Steady ED Course And Treatment O2 Sat by Pulse Oximetry: 100 (Room air) Pulse Ox Interpretation: Normal Progress Note: Motrin administered for pain, will allow to rest until morning. On reevaluation, patient is rested, ambulatory with steady gait, vitals are stable, will discharge home. Disposition Counseled Patient/Family Regarding: Diagnosis, Need For Followup, Rx Given - Disposition Referrals: [facility] [Outside] Disposition: HOME/ ROUTINE Disposition Time: 05:26 Condition: STABLE Additional Instructions: Follow up in clinic Return to ER if worse Instructions: Chronic Knee Pain (DC) Forms: [employer] (Cameroonian) - Clinical Impression Clinical Impression: Knee pain, right - PA / MANAGER MINING / Resident Statement MD/DO has reviewed & agrees with the documentation as recorded. - Scribe Statement The provider has reviewed the documentation as recorded by the Scribe Edd Ramírez All medical record entries made by the Scribe were at my direction and personally dictated by me. I have reviewed the chart and agree that the record accurately reflects my personal performance of the history, physical exam, medical decision making, and the department course for this patient. I have also personally directed, reviewed, and agree with the discharge instructions and disposition.
[2018-12-11 05:51] VITALS: BP 122/68; PULSE 72; TEMP 98.2
== END 2018-12-11 05:55 | disposition home or self-care (01) ==
LOC: C.ER 01:56
DX: M25.561 Pain in right knee (principal); F20.9 Schizophrenia, unspecified; F31.9 Bipolar disorder, unspecified